=== PATIENT | female | born 1980 | race African-American/Black ===

== ENCOUNTER 2019-04-01 21:56 | Emergency (ER) | payer SELFPAY ==
[~2019-04-01] VITALS: Ht 162.6 cm; Wt 65.8 kg
[2019-04-01 22:05] VITALS: BP 159/90
--- NOTE | 2019-04-01 22:23 | PHYS DOC ---
Past Medical History Past Medical History: No Pertinent History Additional Past Surgical Histo: MEDIASTINOSCOPY, ZURDO IN LEFT LEG, FEMUR AND TIBIA FRACTURE Alcohol Use: None Drug Use: None Adult General Chief Complaint Chief Complaint: DENTAL PROBLEM [facility] 38-year-old female presents to the emergency department with complaints of toothache, left face pain. Patient denies any fever or chills. She states she's had this off and on 2 months however worse tonight. Patient has any chest pain, shortness breath, nausea, vomiting. Nothing makes her symptoms worse, nothing makes her symptoms better. All other ROS negative unless documented in HPI Review of Systems Review of Systems See Above Physical Exam Physical Exam See Above Constitutional: Well developed, well nourished, no acute distress, non-toxic appearance. [] HENT: Normocephalic, atraumatic, bilateral external ears normal, oropharynx moist, no oral exudates, nose normal. Left upper molar with inflammation, no drainage [] Eyes: PERRLA, EOMI, conjunctiva normal, no discharge. [] Neck: Normal range of motion, no tenderness, supple, no stridor. [] Cardiovascular:Heart rate regular rhythm, no murmur [] Lungs & Thorax: Bilateral breath sounds clear to auscultation [] Abdomen: Bowel sounds normal, soft, no tenderness, no masses, no pulsatile masses. [] Skin: Warm, dry, no erythema, no rash. [] Back: No tenderness, no CVA tenderness. [] Extremities: No tenderness, no edema. [] Neurologic: Alert and oriented X 3, no focal deficits noted. [] Psychologic: Affect normal, judgement normal, mood normal. [] EKG EKG [] Radiology/Procedures Radiology/Procedures [] Course & Med Decision Making Course & Med Decision Making Pertinent Labs and Imaging studies reviewed. (See chart for details) []38-year-old female presents to the emergency department with complaints of toothache, left face pain. Patient denies any fever or chills. She states she's had this off and on 2 months however worse tonight. Patient has any chest pain, shortness breath, nausea, vomiting. Nothing makes her symptoms worse, nothing makes her symptoms better. Offered patient bupivicaine injection however does not want injection Tramadol po x 1 Plan doxycycline 100mg PO BID x 10 days Follow up with dentist EDSON Mcneil Disclaimer Dragon Disclaimer This electronic medical record was generated, in whole or in part, using a voice recognition dictation system. Departure Departure Impression: Primary Impression: Dental caries Disposition: 01 HOME, SELF-CARE Condition: STABLE Referrals: NO PCP (PCP) Patient Instructions: Dental Caries Additional Instructions: Recommend follow up with PCP 3 - 5 days, Follow up with Dentist EDSON Return to the ER with worsening symptoms, intractable pain, fever, altered mental status Tylenol/Motrin as needed for pain Take antibiotics as directed BLADIMIR HOLT MD Apr 01, 2019 22:23
[2019-04-01] MEDS ORDERED: DOXY100C2 PO (22:25)
[2019-04-01] MEDS ORDERED: traMADol 50 MG TABLET PO ONE (22:30)
== END 2019-04-01 22:30 | disposition home or self-care (01) ==
LOC: ER 21:56
DX: K02.9 Dental caries, unspecified (principal); K08.89 Other specified disorders of teeth and supporting structures; Z98.890 Other specified postprocedural states
CPT/HCPCS: 99283